=== PATIENT | male | born 1975 | race African-American/Black ===

== ENCOUNTER 2019-04-23 17:27 | Emergency (ER) | payer MEDICARE ==
[~2019-04-23] VITALS: Ht 177.8 cm; Wt 103.6 kg
[~2019-04-23 17:27] MED LIST: CYCL10TA7 PO; IBUP800T48 PO
[2019-04-23 17:35] VITALS: Ht 177.8 cm; Wt 103.6 kg
[2019-04-23] MEDS ORDERED: IBUPROFEN 800 MG TAB PO ONE (19:30)
[2019-04-23 20:30] VITALS: BP 130/76; PULSE 69; RESP 18
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
== END 2019-04-23 20:30 | disposition home or self-care (01) ==
LOC: FTE 17:27 → EDBD 17:27 → FTE 20:30
DX: M54.2 Cervicalgia (principal); F17.210 Nicotine dependence, cigarettes, uncomplicated
CPT/HCPCS: 72040